=== PATIENT | female | born 1970 | race Caucasian/White ===

== ENCOUNTER 2017-08-02 05:41 | Emergency (ER) | payer SELFPAY ==
[~2017-08-02] VITALS: Ht 160 cm; Wt 65.8 kg
[2017-08-02 05:55] VITALS: Ht 160 cm; Wt 65.8 kg
[2017-08-02 08:48] LABS: AMPHETAMINE QUAL UR POSITIVE (NEG <=1000)
[2017-08-02 09:02] VITALS: BP 131/79
== END 2017-08-02 09:03 | disposition home or self-care (01) ==
LOC: ED 05:41
PROVIDERS: Emergency Medicine Emergency Medical Services
DX: R41.82 Altered mental status, unspecified (principal); I10 Essential (primary) hypertension
CPT/HCPCS: G0480